=== PATIENT | male | born 1985 | race Caucasian/White ===

== ENCOUNTER 2017-02-17 10:47 | Emergency (ER) | payer SELFPAY ==
[2017-02-17 11:02] VITALS: BP 124/77; PULSE 82; TEMP 98.5; BMI 27.3
--- NOTE | 2017-02-17 11:45 | PDOC ---
History of Present Illness - General Chief Complaint: Injury Stated Complaint: LT HAND INJURY Time Seen by Provider: 02/17/17 11:26 History Source: Patient Exam Limitations: No Limitations - History of Present Illness Initial Comments: 02/17/17 11:4 MY CHIEF Complaint:LEFT PALM LACERATION HISTORY Of present illness: Patient is a 31-year-old old male with no significant medical problems here today with a superficial avulsion laceration of his left palm caused by cutting it with a scizzor this morning when trying to fix a basketball hoop. Patient denies any numbness of his hand or any decreased range of motion of his digits or any other issues. Patient is up-to- date with tetanus. Occurred: reports: this morning Severity: reports: mild Pain Location: reports: none Method of Injury: Yes: other (CUT BY SCIZZOR LEFT PALM ) Modifying Factors: improves with: None Loss of Consciousness: no loss of consciousness Associated Symptoms (Fall): denies symptoms Past History - Past Medical History Allergies/Adverse Reactions: Allergies Allergy/AdvReac Type Severity Reaction Status Date / Time No Known Allergies Allergy Verified 02/17/17 11:02 Home Medications: Ambulatory Orders NK [No Known Home Medication] 02/17/17 Other medical history: NONE - Suicide/Smoking/Psychosocial Hx Smoking History: Never smoked Hx Alcohol Use: Yes (SOCIAL) Drug/Substance Use Hx: No Review of Systems - Review of Systems Able to Perform ROS?: Yes Constitutional: No: Symptoms Reported HEENTM: No: Symptoms Reported Respiratory: No: Symptoms reported Cardiac (ROS): No: Symptoms Reported ABD/GI: No: Symptoms Reported : No: Symptoms Reported Musculoskeletal: No: Symptoms Reported Integumentary: Yes: Other (superfical avulsion laceration left palm) Neurological: No: Symptoms reported *Physical Exam - Vital Signs Last Vital Signs Temp Pulse Resp BP Pulse Ox 98.5 F 82 20 124/77 98 02/17/17 10:59 02/17/17 10:59 02/17/17 10:59 02/17/17 10:59 02/17/17 10:59 - Physical Exam General Appearance: Yes: Appropriately Dressed Extremity: positive: Normal Capillary Refill, Normal Range of Motion (left hand all digits) Integumentary: positive: Other (superfical laceration left palm proximal medial aspect approx 1 cm diameter ) Neurologic: positive: Normal Response, Respond to painful stimul. negative: Numbness, Sensory Deficit (left palm and all digits) Procedures - Consent Consent obtained: Verbal - Additional Procedures Progress: 02/17/17 12:00 avulsion laceration to left proximal medial palm 1 cm diameter area cleanse with Betadine and normal saline 0.9% surgicel applied and bandaid Medical Decision Making - Medical Decision Making 02/17/17 11:50 Patient is a 31-year-old old male with no significant medical problems here today with a superficial avulsion laceration of his left palm caused by cutting it with a scizzor this morning when trying to fix a basketball hoop. Patient denies any numbness of his hand or any decreased range of motion of his digits or any other issues. Patient is up-to-date with tetanus. left palm laceration superficial PLAN: cleansed with betadine/NS 0.9% tiny piece of surgicel bandaid *DC/Admit/Observation/Transfer Diagnosis at time of Disposition: Laceration of left palm without complication Qualifiers: Encounter type: initial encounter Qualified Code(s): S61.412A - Laceration without foreign body of left hand, initial encounter - Discharge Dispostion Disposition: HOME Condition at time of disposition: Stable - Patient Instructions Additional Instructions: Cleanse your hand where wound is twice daily with antibacterial soap and water pat dry and apply tiny amount of bacitracin ointment and cover with Band-Aid except at night when sleeping and air out Return to emergency room if any redness around wound or any fever or any swelling Patient voiced understanding of discharge instructions and all questions were answered AnD thank you for coming to [facility] emergency room for your acute medical needs today.
== END 2017-02-17 11:47 | disposition home or self-care (01) ==
LOC: JERFT 10:47
PROC: 0HQGXZZ Repair Left Hand Skin, External Approach (ICD-10-PCS; principal; 2017-02-17)
DX: S61.412A Laceration without foreign body of left hand, initial encounter (principal); W27.2XXA Contact with scissors, initial encounter; Y93.89 Activity, other specified; Y92.89 Other specified places as the place of occurrence of the external cause; Y99.8 Other external cause status
CPT/HCPCS: 99281-25

== ENCOUNTER 2021-05-28 10:55 | Emergency (ER) | payer BC, OTHER ==
[2021-05-28 11:12] VITALS: BP 130/78; PULSE 98; TEMP 97.8; BMI 26.5
== END 2021-05-28 13:00 | disposition home or self-care (01) ==
LOC: FER 10:55
DX: S02.2XXA Fracture of nasal bones, initial encounter for closed fracture (principal); W50.0XXA Accidental hit or strike by another person, initial encounter
CPT/HCPCS: 70486-TC; 99284-25